=== PATIENT | female | born 1965 | race Caucasian/White ===

== ENCOUNTER 2022-05-23 18:08 | Emergency (ER) | payer SELFPAY ==
[~2022-05-23] VITALS: Ht 152.4 cm; Wt 58.1 kg
--- NOTE | 2022-05-23 18:19 | NUR ---
TO ER BED 16, BIBFAMILY C/O VAGINAL BLEEDING A5AMFYH, HX OF POLYPS, LMP 2YRS AGO, AAOX3, BREATHING EVEN AND NON LABORED, AWAITING MD LARKIN
[2022-05-23 19:54] LABS: BASOPHILS # (AUTO) 0.1 K/uL (0.0-0.2); BASOPHILS % (AUTO) 0.7 % (0.0-2.0); EOSINOPHILS % (AUTO) 1.8 % (0.0-6.0); HEMATOCRIT 37 % (33-45); HEMOGLOBIN 12.4 g/dL (11.5-14.8); LYMPHOCYTES # (AUTO) 1.8 K/uL (0.8-4.8); LYMPHOCYTES % (AUTO) 20.9 % (20.0-44.0); MEAN CORPUSCULAR HGB CONC 34 g/dl (31.0-36.0); MEAN CORPUSCULAR VOLUME 86 fL (82-100); MONOCYTES # (AUTO) 0.7 K/uL (0.1-1.30); MONOCYTES % (AUTO) 7.9 % (2.0-12.0); NEUTROPHILS # (AUTO) 5.8 K/uL (1.8-8.9); NEUTROPHILS % (AUTO) 68.7 % (43.0-81.0); PLATELET COUNT (AUTO) 382 K/uL (150-450); RED BLOOD CELL COUNT(AUTO) 4.28 MIL/uL (4.0-5.2); WHITE BLOOD COUNT (AUTO) 8.4 K/uL (4.3-11.0)
[2022-05-23 19:55] LABS: CALCIUM, SERUM 9.3 mg/dL (8.5-10.1); CREATININE 0.6 mg/dL (0.6-1.3); POTASSIUM 3.9 mmol/L (3.5-5.1)
--- NOTE | 2022-05-23 20:25 | NUR ---
Patient discharged to home in stable condition. Written and verbal after care instructions given. Patient verbalizes understanding of instruction.
[2022-05-23 20:26] VITALS: BP 168/85
== END 2022-05-23 20:26 | disposition home or self-care (01) ==
LOC: ER 18:16
DX: N95.0 Postmenopausal bleeding (principal); I10 Essential (primary) hypertension
CPT/HCPCS: 36415; 80048-TC; 85025-TC; 85730-TC